=== PATIENT | female | born 1960 | race Caucasian/White ===

== ENCOUNTER 2021-12-20 18:02 | Emergency (ER) | payer BC ==
[2021-12-20] MEDS ORDERED: Fentanyl 100 MCG/2 ML VIAL ONE (18:49)
[2021-12-20] MEDS ORDERED: Ketorolac Tromethamine 30 MG/ML VIAL ONE (18:49)
== END 2021-12-20 19:45 | disposition home or self-care (01) ==
LOC: ERS 18:02
DX: S82.032A Displaced transverse fracture of left patella, initial encounter for closed fracture (principal); E78.5 Hyperlipidemia, unspecified; E03.9 Hypothyroidism, unspecified; Z79.899 Other long term (current) drug therapy; W18.09XA Striking against other object with subsequent fall, initial encounter
CPT/HCPCS: 96372; J1885; J3010